=== PATIENT | female | born 1945 | race Two or more races ===

== ENCOUNTER 2018-02-07 15:48 | Outpatient (CLI) | payer OTHER | END 2018-02-07 15:57 | disposition home or self-care (01) | LOC: RAD 501 15:48 | DX: M25.562 Pain in left knee (principal); M25.511 Pain in right shoulder ==

== ENCOUNTER → 2018-02-09 10:30 | Outpatient (CLI) | payer OTHER | END | disposition home or self-care (01) | LOC: RAD 02-08 08:59 | DX: D64.89 Other specified anemias (principal); E88.89 Other specified metabolic disorders; D68.8 Other specified coagulation defects; N39.0 Urinary tract infection, site not specified; A49.02 Methicillin resistant Staphylococcus aureus infection, unspecified site; Z76.89 Persons encountering health services in other specified circumstances ==

== ENCOUNTER 2018-02-19 08:25 | Outpatient (CLI) | payer OTHER ==
[2018-02-20] MEDS ORDERED: COZAAR100 MG PO (08:37)
[2018-02-20] MEDS ORDERED: SYNTHROID88 MCG PO (08:37)
[2018-02-20] MEDS ORDERED: [UNRECOGNIZED DRUG - OTHER] PO (08:38)
[2018-02-20] MEDS ORDERED: OMEPRAZOLE20 MG PO (08:38)
[2018-02-20] MEDS ORDERED: DOLOGESIC-DF 51 EACH PO (08:39)
== END 2018-02-19 08:30 | disposition home or self-care (01) ==
LOC: LAB 08:25
DX: D64.89 Other specified anemias (principal); M06.4 Inflammatory polyarthropathy; E03.8 Other specified hypothyroidism

== ENCOUNTER 2018-02-27 06:05 | Day surgery (SDC) | payer OTHER ==
[~2018-02-27 06:05] MED LIST: COZAAR100 MG PO; DOLOGESIC-DF 51 EACH PO; OMEPRAZOLE20 MG PO; SYNTHROID88 MCG PO; [UNRECOGNIZED DRUG - OTHER] PO
== END 2018-02-27 14:40 | disposition home or self-care (01) ==
LOC: CIR.AMB 06:05
DX: M75.121 Complete rotator cuff tear or rupture of right shoulder, not specified as traumatic (principal); M19.011 Primary osteoarthritis, right shoulder; M65.811 Other synovitis and tenosynovitis, right shoulder